=== PATIENT | male | born 1970 | race Caucasian/White ===

== ENCOUNTER → 2023-09-10 | Emergency (ER) | payer OTHER ==
[~2023-09-10] VITALS: Ht 182.9 cm; Wt 90.9 kg
[~2023-09-10] MED LIST: ibuprofen tablet 400 MG TABLET PO ONE
[2023-09-10] MEDS: ibuprofen 200mg tablet PO ONE (01:41)
== END ==
LOC: ER 03:47
DX: M25.512 Pain in left shoulder (principal)
CPT/HCPCS: 99283